=== PATIENT | male | born 1955 | race Caucasian/White ===

== ENCOUNTER 2019-03-29 08:55 | Outpatient (CLI) | payer MEDICARE, SELFPAY ==
--- NOTE | 2019-04-01 23:49 | P.PCNPFT_ITS ---
PFT Interpretation PFT Interpretation: DOS: 03/29/2019 REQUESTING: Dr. Chapin Ocampo REASON FOR TESTING: Dyspnea PULMONARY FUNCTION TESTS Spirometry: Moderate decrease in FEV1 56%, 1.73 L. Moderate decrease in FVC 60%. Decreased FEV1% consistent with airflow obstruction. Severe decrease in FEF25- 75%. No change with bronchodilator. Lung volumes: Mild increase in total lung capacity 121% consistent with hyperinflation. Severe increase in residual volume consistent with air trapping. Increase airway resistance 273%. Diffusion: DLCO is 93%, normal. Flow volume loop: Scooping of the expiratory limb. IMPRESSION: Moderate obstructive ventilatory impairment, mild hyperinflation, severe air trapping. Lack of response to bronchodilator should not preclude use if clinically indicated. Nicolette Swann MD
== END 2019-03-29 08:56 | disposition home or self-care (01) ==
PROVIDERS: PCP Family Medicine; Visit Provider Family Medicine
DX: R06.09 Other forms of dyspnea (principal); R94.2 Abnormal results of pulmonary function studies
CPT/HCPCS: 94060; 94726; 94729

== ENCOUNTER 2020-06-02 15:06 | Outpatient (CLI) | payer MEDICARE, OTHER, SELFPAY ==
--- NOTE | 2020-06-08 13:11 | WPDPFTINT ---
PFT Interpretation This PFT met all criteria for ATS standards and reproducibility FEV/FVC post bronchodilator 62% FEV1 51% FVC 63% TLC 77% RV 114% RV/TLC 50% DLCO 67% when adjusted for alveolar volume but not adjusted for hemoglobin Flow volume loops showed significant expiratory coving. Impression: Severe to moderate Airflow obstruction with good response to bronchodilators. There is also a restrictive ventilatory defect As well as mildly reduced diffusion capacity. When compared to a pulmonary function test in March of 2019 there has been a significant decline in total lung capacity as well as diffusion capacity. This pattern suggests underlying obstructive airway disease such as COPD and/or asthma but may also suggest developing interstitial lung disease. Clinical And radiographic correlation is advised. PFT Procedure Performed PFT Procedure Performed Spirometry with Pre/Post Bronchodilator Plethysmography (Lung Vol) Diffusing Cap (DLCO) Flow Vol Loop
== END 2020-06-02 15:07 | disposition home or self-care (01) ==
LOC: ANHPFT 15:08
PROVIDERS: PCP Family Medicine
DX: J44.9 Chronic obstructive pulmonary disease, unspecified (principal)
CPT/HCPCS: 94060; 94726; 94729

== ENCOUNTER → 2021-03-28 11:32 | Outpatient (CLI) | payer MEDICARE, SELFPAY ==
--- NOTE | ~2021-03-28 | MR_ITS ---
EXAMINATION: MR brain/brain stem wo con DATE: 03/28/2021 12:18 INDICATION: Right hand tremor. TECHNIQUE: Magnetic resonance imaging (MRI) of the brain and brainstem was performed without intraven ous contrast. Sequences included sagittal and axial T1-weighted FSE, axial diffusion-weighted FS EPI, axial T2*-weighted GRE, axial T2-weighted FLAIR Propeller, and axial T2-weighted Propeller. Apparent diffusion coefficient (ADC) maps were created. COMPARISON: None. FINDINGS: There are scattered areas of nonspecific increased T2-weighted signal intensity in the cere bral white matter, which is within normal limits for the patient's age. There is no intracranial hemo rrhage, acute infarction, or abnormal intracranial mass lesion. The ventricles are normal in size. Th e mastoid air cells are normal. There is mucosal thickening in the paranasal sinuses. There are likel y changes of right ocular lens replacement surgery. IMPRESSION: 1. Normal aging brain. Reviewed, dictated and finalized at location E. ISSARY WORKER IMPRESSION: 1. Normal aging brain.
== END ==
PROVIDERS: PCP Family Medicine; Visit Provider Family Medicine
DX: G25.2 Other specified forms of tremor (principal); Z98.890 Other specified postprocedural states
CPT/HCPCS: 70551

== ENCOUNTER 2021-03-31 08:00 | Outpatient (CLI) | payer MEDICARE, OTHER, SELFPAY ==
--- NOTE | ~2021-03-31 | CT_ITS ---
EXAMINATION:CT diagnostic chest wo con DATE: 03/31/2021 08:29 INDICATION: Solitary pulmonary nodule. TECHNIQUE: Computed tomography (CT) of the chest was performed without intravenous contrast. Automate d exposure control and iterative reconstruction technique were employed. The dose-length product (DLP ) was 118.09 mGy-cm. COMPARISON: Chest CT 12/06/2018, 12/04/2019, 11/29/2017 FINDINGS: The lungs demonstrate mild atelectasis. There is a 9 mm nodule in right upper lobe, stable from 11/29/2017. There is mild emphysema. There are 8 mm and 5 mm nodules at minor fissure, stable fr om 11/29/2017. There is 6 mm and 4 mm nodules at right major fissure, stable from 11/29/2017. No pleu ral effusion. The heart size is normal. There are coronary artery calcifications. No pericardial effu carissa. There is a 6 mm stone in left kidney. There is a 3 mm stone in right kidney. There is mild thor acic spondylosis. There is a chronic compression fracture of L1. IMPRESSION: 1. Lung-RADS category 2: Benign appearance or behavior. Continue annual screening with noncontrast lo w-dose chest CT in 12 months. Reviewed, dictated and finalized at location A. PRESSER IMPRESSION: 1. Lung-RADS category 2: Benign appearance or behavior. Continue annual screeni ng with noncontrast low-dose chest CT in 12 months.
--- NOTE | ~2021-03-31 | US_ITS ---
EXAMINATION: US aorta [facility] DATE: 03/31/2021 08:26 INDICATION: Abdominal aortic aneurysm screening, diabetes, prior smoker TECHNIQUE: Grayscale, color Doppler, and pulsed Doppler images of the aorta and common iliac arteries were obtained. COMPARISON: None. FINDINGS: Maximum vascular dimensions are as follows: Proximal aorta: 2.8 cm Mid aorta: 2.1 cm Distal aorta: 2.0 cm Right common iliac artery: 1.0 cm Left common iliac artery: 1.1 cm There is no evidence of abdominal aortic aneurysm. IMPRESSION: 1. No sonographic evidence of abdominal aortic aneurysm. Reviewed, dictated and finalized at location A. MENTAL METALWORK DESIGNER
== END 2021-03-31 08:01 | disposition home or self-care (01) ==
LOC: ANHIMG 08:03
PROVIDERS: PCP Family Medicine; Visit Provider Family Medicine
DX: Z13.6 Encounter for screening for cardiovascular disorders (principal); R91.1 Solitary pulmonary nodule
CPT/HCPCS: 71250; 76706

== ENCOUNTER 2022-03-22 12:22 | Outpatient (CLI) | payer MEDICARE, OTHER, SELFPAY ==
--- NOTE | 2022-03-22 17:23 | WPDPFTINT ---
PFT Procedure Performed PFT Procedure Performed Spirometry with Pre/Post Bronchodilator Plethysmography (Lung Vol) Diffusing Cap (DLCO) Flow Vol Loop PFT Interpretation This is a pulmonary function test with pre and post-bronchodilator spirometry, plethysmography and diffusing capacity. The test was performed and results interpreted in accordance with the 2019 and 2005 ATS/ERS Task Force guidelines respectively using the Global Lung Function Initiative-2012 reference equations. Patient demonstrated good effort and cooperation. Reproducibility criteria were met. The quality of the pre bronchodilator spirometry maneuver was Grade A and post bronchodilator spirometry maneuver was Grade A. Findings: Spirometry: The contour the inspiratory and expiratory flow tracing are normal. The pre bronchodilator FVC is 2.98 L, 69% predicted. The pre bronchodilator FEV1 is 2.07 L, 63% predicted. The pre bronchodilator FEV1: FVC ratio 70%. The post bronchodilator FVC is 3.19 L, representing a 7% increase. The post bronchodilator FEV1 is 2.19 L, representing a 6% increase. The post bronchodilator FEV1: FVC ratio 69%. Plethysmography: The total lung capacity is 8.24 L, 117% predicted. The functional residual capacity is 6.00 L, 161% predicted. The residual volume is 5.12 L, 212% predicted. Diffusing capacity: The diffusing capacity unadjusted for hemoglobin and carboxyhemoglobin is 17.9, 67% predicted. The diffusing capacity adjusted for alveolar volume is 3.65, 91% predicted. In comparison to previous pulmonary function testing on 06/02/2020 the post bronchodilator FVC he has increased from 2.78 L to 3.19 L. The post bronchodilator FEV1 has increased from 1.72 L to 2.19 L. The total lung capacity has increased from 5.43 L to 8.24 L. The functional residual capacity has increased from 3.26 L to 6.00 L. The residual volume has increased from 2.71 L to 5.12 L. The diffusing capacity unadjusted for hemoglobin and carboxyhemoglobin is unchanged from 18.0 to 17.9. The diffusing capacity adjusted for alveolar volume is unchanged from 3.97 L to 3.65 L. Impression: The spirometry is normal without evidence of an obstructive abnormality. There is no significant improvement after inhaling a single dose of albuterol. The total lung capacity is normal with an increased functional residual capacity, residual volume and residual volume:total lung capacity ratio consistent with hyperinflation. The diffusing capacity unadjusted for hemoglobin and carboxyhemoglobin is mildly decreased and normalizes when adjusted for alveolar volume. When compared to previous pulmonary function testing on 06/02/2020 there has been a greater than anticipated time dependent increase in the FVC, FEV1, total lung capacity, functional residual capacity, residual volume and no change in the DLCO. Clinical correlation is recommended.
== END 2022-03-22 12:23 | disposition home or self-care (01) ==
PROVIDERS: PCP Family Medicine; Visit Provider Family Medicine
DX: J44.9 Chronic obstructive pulmonary disease, unspecified (principal)
CPT/HCPCS: 94060; 94726; 94729

== ENCOUNTER 2022-07-06 00:20 | Day surgery (SDC) | payer MEDICARE, OTHER, SELFPAY ==
[2022-06-22 11:09] VITALS: BMI 24.6
[2022-07-06 10:15] VITALS: BP 133/74; PULSE 71; RESP 18; TEMP 36.4; O2SAT 98; BMI 24.0
[2022-07-06 10:27] LABS: Glucose Point of Care 148 mg/dl (65-105)
--- NOTE | 2022-07-06 10:30 | PM.HPGS ---
History of Present Illness History of Present Illness Consent: Risks, benefits, and alternatives have been discussed and questions answered. Patient agrees to proceed with procedure. Chief complaint: neoplasm screening Narrative: Brice Gallegos is a 66 year old male Presents for screening colonoscopy. Patient does have a prior history of colon polyps 5 years ago. Patient reports his current weight appetite bowel movements are normal. Patient denies abdominal pain. He has had no bleeding. Family history noncontributory. Review of Systems Review of Systems: Review of systems noncontributory. [facility] Past Medical History Medical History COPD (chronic obstructive pulmonary disease) History of diabetes mellitus History of throat cancer Surgical History Surgical History History of ankle surgery right History of inguinal hernia repair History of shoulder surgery right History of tonsillectomy Family History Family History Father Family history of malignant neoplasm Mother Family history of Alzheimer's disease Family history of diabetes mellitus in first degree relative Sibling Patient's sister is in good health Patient's brother is in good health Social History Social History Smoking packs per day: 1.5 Smoking cigarettes per day: 30.0 Years smoked: 35 Smoking pack-years: 52.50 Smoking status: Former smoker Tobacco type: cigarettes Second hand tobacco smoke exposure: No Smoking end date: 07/15/18 Additional smoking assessment comments: quit 10 years ago Alcohol intake: never Substance use: never Substance use type: does not use Lack of Transportation: No Lack of Food: Never True Current Housing: I Have Housing Concerned About Future Housing: No Difficulty Paying Gas/Electric Bills: No Difficulty Paying for Meds: No Currently Unemployed: No Education: High School Diploma/GED Difficulty w/ Childcare or Family Care: No Living arrangements: with family Occupation/Education: retired Gender identity (if verbalized by the patient): Male Sexual Orientation (if Verbalized by the Patient): Straight or Heterosexual Spiritual care concerns: No Meds Home Medications and Allergies Home Medications Medication Instructions Recorded Confirmed Type aspirin 81 mg chewable tablet 81 mg PO DAILY@0800 #30 tabs 02/22/19 06/22/22 Rx (Children's Aspirin) pen needle, diabetic, safety 30 #100 ea 10/16/19 06/22/22 Rx gauge x 5/16 pen needle, diabetic 31 gauge x #100 ea 12/18/19 06/22/22 Rx 3/16 (BD Ultra-Fine Mini Pen Needle) albuterol sulfate 90 mcg/actuation 1 - 2 inh inhalation Q4H PRN 09/30/20 06/22/22 Rx aerosol inhaler (ProAir HFA) shortness of breath or wheezing #6.7 grams methocarbamol 500 mg tablet 500 mg PO BID 03/23/21 06/22/22 History flash glucose scanning reader #1 ea 07/27/21 06/22/22 Rx (FreeStyle Jolie 14 Day [place]) flash glucose sensor (FreeStyle #2 ea 07/27/21 06/22/22 Rx Jolie 14 Day Sensor kit) insulin degludec 100 unit/mL (3 30 unit (0.3 mL) subcut QPM #27 mL 09/15/21 06/22/22 Rx mL) subcutaneous pen (Tresiba FlexTouch U-100 insulin) metformin 1,000 mg tablet 1,000 mg PO BID #180 tabs 09/30/21 06/22/22 Rx insulin aspart U-100 100 unit/mL See Rx Instructions subcut TID #30 11/25/21 06/22/22 Rx (3 mL) subcutaneous pen (Novolog mL FlexPen U-100 Insulin aspart) sildenafil 50 mg tablet 50 mg PO DAILY PRN sexual activity 12/11/21 06/22/22 Rx #14 tabs primidone 250 mg tablet 500 mg PO BID #120 tabs 03/25/22 06/22/22 Rx rosuvastatin 5 mg tablet (Crestor) 5 mg PO DAILY #90 tabs 05/06/22 06/22/22 Rx Symbicort 160 mcg-4.5 See Rx Instructions .Route 06/24/22 07/06/22 Rx mcg/actuation HFA aerosol i
[2022-07-06] MEDS: LACTATED RINGERS 1,000 ML 150 ML IV CONT (10:37)
--- NOTE | 2022-07-06 11:04 | WPDANESEPPF ---
Anes - Initial Pre Proc Eval Procedure: Operation Date: 07/06/22 11:30 Proposed Procedures p Screening Colonoscopy - Lyle Walter MD Date/Time: 07/06/22 11:04 Surgeon: Lyle Walter MD Pre Op Diagnosis: neoplasm screening Patient Data Age: 66 Gender: M Height: 1.78 m Weight: 75.9 kg Last Vital Signs Temp 97.6 F 07/06/22 10:15 Pulse 71 07/06/22 10:15 Resp 18 07/06/22 10:15 BP 133/74 07/06/22 10:15 Pulse Ox 98 07/06/22 10:15 O2 Del Method Room Air 07/06/22 10:15 Allergies Allergy/AdvReac Type Severity Reaction Status Date / Time shellfish derived Allergy Intermediate Swelling Verified 06/22/22 11:09 shrimp Allergy Unknown Anaphylaxis Verified 06/22/22 11:09 Home Medications Medication Instructions Recorded Confirmed Type aspirin 81 mg chewable tablet 81 mg PO DAILY@0800 #30 tabs 02/22/19 06/22/22 Rx (Children's Aspirin) pen needle, diabetic, safety 30 #100 ea 10/16/19 06/22/22 Rx gauge x 5/16 pen needle, diabetic 31 gauge x #100 ea 12/18/19 06/22/22 Rx 3/16 (BD Ultra-Fine Mini Pen Needle) albuterol sulfate 90 mcg/actuation 1 - 2 inh inhalation Q4H PRN 09/30/20 06/22/22 Rx aerosol inhaler (ProAir HFA) shortness of breath or wheezing #6.7 grams methocarbamol 500 mg tablet 500 mg PO BID 03/23/21 06/22/22 History flash glucose scanning reader #1 ea 07/27/21 06/22/22 Rx (FreeStyle Jolie 14 Day [place]) flash glucose sensor (FreeStyle #2 ea 07/27/21 06/22/22 Rx Jolie 14 Day Sensor kit) insulin degludec 100 unit/mL (3 30 unit (0.3 mL) subcut QPM #27 mL 09/15/21 06/22/22 Rx mL) subcutaneous pen (Tresiba FlexTouch U-100 insulin) metformin 1,000 mg tablet 1,000 mg PO BID #180 tabs 08/17/22 05/09/23 Rx insulin aspart U-100 100 unit/mL See Rx Instructions subcut TID #30 11/25/21 06/22/22 Rx (3 mL) subcutaneous pen (Novolog mL FlexPen U-100 Insulin aspart) sildenafil 50 mg tablet 50 mg PO DAILY PRN sexual activity 12/11/21 06/22/22 Rx #14 tabs primidone 250 mg tablet 500 mg PO BID #120 tabs 03/25/22 06/22/22 Rx rosuvastatin 5 mg tablet (Crestor) 5 mg PO DAILY #90 tabs 05/06/22 06/22/22 Rx Symbicort 160 mcg-4.5 See Rx Instructions .Route 06/24/22 07/06/22 Rx mcg/actuation HFA aerosol inhaler .COMPLEX #11 grams (budesonide-formoterol) Laboratory Tests 07/06/22 10:25 POC Capillary Glucose 148 H mg/dl (65-105) Patient hx anesthesia problems: none Family hx anesthesia problems: none Results Review: All pre-operative results and documents have been reviewed as part of the pre-operative evaluation. [facility] Past Medical History Medical History COPD (chronic obstructive pulmonary disease) History of diabetes mellitus History of throat cancer Surgical History Surgical History History of ankle surgery right History of inguinal hernia repair History of shoulder surgery right History of tonsillectomy Family History Family History Father Family history of malignant neoplasm Mother Family history of Alzheimer's disease Family history of diabetes mellitus in first degree relative Sibling Patient's sister is in good health Patient's brother is in good health Social History Social History Smoking packs per day: 1.5 Smoking cigarettes per day: 30.0 Years smoked: 35 Smoking pack-years: 52.50 Smoking status: Former smoker Tobacco type: cigarettes Second hand tobacco smoke exposure: No Smoking end date: 07/15/18 Additional smoking assessment comments: quit 10 years ago Alcohol intake: never Substance use: never Substance use type: does not use Lack of Transportation: No Lack of Food: Never True Current Housing: I Have Housing Concerned About Future Housing: No Diff
[2022-07-06] MEDS: SIMETHICONE ORAL SUSPENSION 20 MG/0.3 ML 30 ML BOTTLE 0.6 ML IRRIGATION (11:30)
[2022-07-06 11:45] VITALS: BP 102/60; PULSE 72; RESP 18; O2SAT 99
[2022-07-06 11:55] VITALS: BP 113/68; PULSE 70; RESP 20; O2SAT 98
[2022-07-06 12:05] VITALS: BP 110/69; PULSE 68; RESP 20; O2SAT 99
== END 2022-07-06 12:18 | disposition home or self-care (01) ==
PROVIDERS: PCP Family Medicine; Visit Provider Internal Medicine Gastroenterology
PROC: 0DJD8ZZ Inspection of Lower Intestinal Tract, Via Natural or Artificial Opening Endoscopic (ICD-10-PCS; CPT 45378; principal; 2022-07-06 11:30)
DX: Z12.11 Encounter for screening for malignant neoplasm of colon (principal); D12.2 Benign neoplasm of ascending colon; K62.1 Rectal polyp; K64.8 Other hemorrhoids; J44.9 Chronic obstructive pulmonary disease, unspecified; E11.9 Type 2 diabetes mellitus without complications; Z87.891 Personal history of nicotine dependence; Z79.82 Long term (current) use of aspirin; Z79.4 Long term (current) use of insulin
CPT/HCPCS: 45385; 82948; 88305; J2704; J7120

== ENCOUNTER → 2022-07-07 09:49 | Outpatient (CLI) | payer MEDICARE, OTHER, SELFPAY ==
--- NOTE | ~2022-07-07 | XR_ITS ---
EXAMINATION: XR chest 2V 07/07/2022 10:18 INDICATION: Personal history of malignant neoplasm PROCEDURE: 2 view chest COMPARISON: 02/21/2019 FINDINGS: The lungs are clear. The cardiomediastinal silhouette is within normal limits. There are no pleural effusions. There is no pneumothorax suspected. IMPRESSION: 1: NO ACUTE CARDIOPULMONARY DISEASE. Reviewed, dictated and finalized at location B.
== END ==
PROVIDERS: PCP Family Medicine; Visit Provider Otolaryngology
DX: Z85.831 Personal history of malignant neoplasm of soft tissue (principal)
CPT/HCPCS: 71046

== ENCOUNTER → 2022-07-09 11:56 | Outpatient (CLI) | payer MEDICARE, OTHER, SELFPAY ==
--- NOTE | ~2022-07-09 | CT_ITS ---
EXAMINATION: CT lung screening DATE: 07/09/2022 12:30 INDICATION: Nicotine dependence TECHNIQUE: Computed tomography (CT) of the chest was performed without intravenous contrast. The dose -length product was 99.71 mGy-cm. Automated exposure control and iterative reconstruction technique w ere employed. COMPARISON: Comparison to multiple prior studies sequentially, with oldest reviewed study dated 11/14. FINDINGS: There is elevation of the left diaphragm. There is atherosclerosis of the aorta and coronar y arteries. Heart size normal. No thoracic lymphadenopathy. Mild thickening of the distal esophagus, suspicious for esophagitis. There is nonobstructing left nephrolithiasis. There are small right sided perifissural nodules measuring 4 mm. There is an 8 mm right fissural nodule, image 67. The pulmonary nodules are unchanged from prior examination. No new pulmonary nodules or masses. No focal airspace consolidation. No pneumothorax. Stable mild superior endplate compression deformity of L1. IMPRESSION: 1. Lung-RADS category 2: Benign appearance or behavior. Continue annual screening with noncontrast lo w-dose chest CT in 12 months. Reviewed, dictated and finalized at location B. IMPRESSION: 1. Lung-RADS category 2: Benign appearance or behavior. Continue annual screeni ng with noncontrast low-dose chest CT in 12 months.
== END ==
PROVIDERS: PCP Physician Assistant; Visit Provider Physician Assistant
DX: Z12.2 Encounter for screening for malignant neoplasm of respiratory organs (principal); Z87.891 Personal history of nicotine dependence
CPT/HCPCS: 71271

== ENCOUNTER 2022-12-25 12:50 | Emergency (ER) | payer MEDICARE, OTHER, SELFPAY ==
--- NOTE | ~2022-12-25 | XR_ITS ---
EXAMINATION: XR ribs LT 2V DATE: 12/25/2022 13:11 INDICATION: Left chest injury and pain. TECHNIQUE: 2 views of the left ribs on 3 radiographs were obtained. COMPARISON: Chest 2 views 07/07/2022, chest CT 07/09/2022 FINDINGS: There is chronic mild elevation of left hemidiaphragm. No left-sided pneumonia, pleural eff usion, or pneumothorax. The heart size is normal. There is no rib fracture. IMPRESSION: 1. No rib fracture. Reviewed, dictated and finalized at location A. GRADER OPERATOR IMPRESSION: 1. No rib fracture.
--- NOTE | 2022-12-25 12:54 | ED.CHESTPAIN ---
HPI - Chest Pain General Chief Complaint: Chest Pain Stated Complaint: rib pain Time Seen by Provider: 12/25/22 12:53 Source: patient Mode of arrival: ambulatory Limitations: no limitations History of Present Illness HPI narrative: Luz is a 67-year-old male patient presenting to the clinic today with complaints of left rib pain x2 days. He reports is lying on the ground laying pipe in a ditch and rolled on his left side and felt a pop to his left lower ribs. [place] a pop when he rolled. Complaining of pain/discomfort to the left lower ribs ever since is gradually getting worse. Related Data Home Medications Medication Instructions Recorded Confirmed budesonide-formoterol HFA 160 See Rx Instructions .Route 10/29/22 11/29/22 mcg-4.5 mcg/actuation aerosol .COMPLEX PRN inhaler (Symbicort) Allergies Allergy/AdvReac Type Severity Reaction Status Date / Time shellfish derived Allergy Intermediate Swelling Verified 11/29/22 11:20 shrimp Allergy Unknown Anaphylaxis Verified 11/29/22 11:20 Review of Systems Review of Systems: Pertinent positives per HPI. Patient denies any fever, chills, rash, headache, visual changes, dizziness, cough, shortness of breath, chest pain, palpitations, nausea, vomiting, diarrhea, constipation, abdominal pain, or any urinary issues. [facility] Past Medical History Medical History COPD (chronic obstructive pulmonary disease) History of diabetes mellitus History of throat cancer Surgical History Surgical History History of ankle surgery right History of inguinal hernia repair History of shoulder surgery right History of tonsillectomy Family History Family History Father Family history of malignant neoplasm Mother Family history of Alzheimer's disease Family history of diabetes mellitus in first degree relative Sibling Patient's sister is in good health Patient's brother is in good health Social History Social History Smoking packs per day: 1.5 Smoking cigarettes per day: 30.0 Years smoked: 35 Smoking pack-years: 52.50 Smoking status: Former smoker Tobacco type: cigarettes Second hand tobacco smoke exposure: No Smoking end date: 07/15/18 Additional smoking assessment comments: quit 10 years ago Alcohol intake: former Substance use: current Substance use type: marijuana Lack of Transportation: No Lack of Food: Never True Current Housing: I Have Housing Concerned About Future Housing: No Difficulty Paying Gas/Electric Bills: No Difficulty Paying for Meds: No Currently Unemployed: No Education: High School Diploma/GED Difficulty w/ Childcare or Family Care: No Living arrangements: with family Occupation/Education: retired Gender identity (if verbalized by the patient): Male Sexual Orientation (if Verbalized by the Patient): Straight or Heterosexual Spiritual care concerns: No Comments At the time of my signature, I reviewed and agree with the nursing past medical, surgical, social, and family history. There is no relevant family history pertinent to the patient complaint. Exam Narrative: General: Well-developed, well nourished, in no apparent distress Head: Normocephalic, atraumatic Eyes: Pupils equally round and reactive to light bilaterally, EOM intact, sclera and conjunctive clear, no discharge, lids normal Ears: TMs intact and clear, ear canals clear, no drainage, grossly hearing normal. Nose: Nares patent, no discharge, no inflammation, no sinus tenderness. Mouth: Oral pharynx without lesions or masses, good dentition, MMM. Neck: Supple, trachea midline, no enlargement of anterior or posterior cervical nodes, no thyroid masses or goiter palpable. Chest wall: Tender to palp
[2022-12-25 13:02] VITALS: BP 139/63; PULSE 73; RESP 18; TEMP 36.4; O2SAT 98
== END 2022-12-25 13:23 | disposition home or self-care (01) ==
PROVIDERS: Emergency Provider Nurse Practitioner Family; PCP Family Medicine
DX: S20.211A Contusion of right front wall of thorax, initial encounter (principal); J44.9 Chronic obstructive pulmonary disease, unspecified; E11.9 Type 2 diabetes mellitus without complications; Z85.89 Personal history of malignant neoplasm of other organs and systems; Z87.891 Personal history of nicotine dependence; X50.0XXA Overexertion from strenuous movement or load, initial encounter
CPT/HCPCS: 71100; 99213; G0463

== ENCOUNTER 2023-07-12 08:22 | Outpatient (CLI) | payer MEDICARE, OTHER, SELFPAY ==
--- NOTE | ~2023-07-12 | CT_ITS ---
CT Scan of the Chest without Contrast: Clinical Indication: Lung cancer screening, nicotine dependence Technique: Contiguous sections were acquired throughout the chest without intravenous contrast. Dose reduction technique was used on this scan by utilizing automated exposure control and iterative recon struction technique. The dose-length product (DLP) was 69.91 mGy-cm. COMPARISON: 07/09/2022 Findings: There is no evidence of any significant mediastinal, hilar or axillary lymphadenopathy. The mediastin al soft tissues appear normal. There is no evidence of pleural or pericardial effusion. Stable 1.1 cm right upper lobe pulmonary nodule present (axial image 58). Stable nodules along the ri ght minor fissure. Images through the upper abdomen reveal bilateral nonobstructing renal stones, largest measuring 7 mm on the left side. Stable mild compression deformity of L1. Impression: Lung RADS 2: Benign appearance. 12 month follow-up screening CT advised. Reviewed, dictated and finalized at [facility]. Impression: Lung RADS 2: Benign appearance. 12 month follow-up screening CT advised.
== END 2023-07-12 08:23 ==
LOC: MICIMG 08:24
PROVIDERS: PCP Family Medicine; Visit Provider Physician Assistant
DX: Z12.2 Encounter for screening for malignant neoplasm of respiratory organs (principal); Z87.891 Personal history of nicotine dependence
CPT/HCPCS: 71271

== ENCOUNTER 2024-04-09 14:25 | Emergency (ER) | payer MEDICARE, OTHER, SELFPAY ==
--- NOTE | 2024-04-09 14:58 | ED.SKABFB ---
HPI - Skin/Abscess/Foreign Bdy General Chief complaint: Skin/Abscess/Foreign Body Stated complaint: Burn in the bottom of both feet Time Seen by Provider: 04/09/24 15:14 Source: patient, RN notes reviewed and old records reviewed Mode of arrival: ambulatory Limitations: no limitations History of Present Illness HPI narrative: 68-year-old male presents to the [facility] with adam to the bottom of both feet that occurred approximately 1 week ago. Patient states that he had applied hot hands toe more MRSA to his feet when the temperatures were very cold. Onset (ago): week(s) (1) Related Data Home Medications ?Medication ?Instructions ?Recorded ?Confirmed ?Last Taken ?Type insulin degludec 100 unit/mL (3 8 unit subcut QPM 09/14/23 01/25/24 Unknown History mL) subcutaneous pen (Tresiba FlexTouch U-100 insulin) omeprazole 40 mg capsule,delayed 40 mg PO DAILY 09/14/23 01/25/24 Unknown History release Allergies Allergy/AdvReac Type Severity Reaction Status Date / Time shellfish derived Allergy Intermediate Swelling Verified 04/09/24 15:15 shrimp Allergy Unknown Anaphylaxis Verified 09/14/23 10:32 Review of Systems Review of Systems: All systems reviewed & are unremarkable except as noted in HPI and below Constitutional: Constitutional: Reports no additional constitutional complaints ENT: Reports system reviewed and no additional complaints, except as documented Cardiovascular: Cardiovascular: Reports no additional cardiovascular complaints, Denies chest pain and Denies dyspnea Respiratory: Respiratory: Reports no additional respiratory complaints, Denies chest congestion, Denies cough and Denies dyspnea Musculoskeletal: Musculoskeletal: Reports no additional musculoskeletal complaints Integumentary/Breasts: Skin/Breast: Reports as per HPI PMFSH Past Medical History Medical History COPD (chronic obstructive pulmonary disease) History of throat cancer History of diabetes mellitus Surgical History Surgical History History of shoulder surgery right History of ankle surgery right History of inguinal hernia repair History of tonsillectomy Family History Family History Father Family history of malignant neoplasm Mother Family history of Alzheimer's disease Family history of diabetes mellitus in first degree relative Sibling Patient's sister is in good health Patient's brother is in good health Social History Social History Smoking packs per day: 1.5 Smoking cigarettes per day: 30.0 Years smoked: 35 Smoking pack-years: 52.50 Smoking status: Former smoker Tobacco type: cigarettes Second hand tobacco smoke exposure: No Smoking end date: 07/15/18 Additional smoking assessment comments: quit 10 years ago Alcohol intake: former Substance use: current Substance use type: marijuana Do You Feel Safe in your Home?: Yes Lack of Transportation: No Lack of Food: Never True Current Housing: I Have Housing Concerned About Future Housing: No Difficulty Paying Gas/Electric Bills: No Difficulty Paying for Meds: No Currently Unemployed: No Education: High School Diploma/GED Difficulty w/ Childcare or Family Care: No Living arrangements: with family Occupation/Education: retired Gender identity (if verbalized by the patient): Male Sexual Orientation (if Verbalized by the Patient): Straight or Heterosexual Spiritual care concerns: No Comments At the time of my signature, I reviewed and agree with the nursing past medical, surgical, social, and family history. There is no relevant family history pertinent to the patient complaint. Exam Const: General: cooperative, healthy appearing, comfortable, no acute distress, well developed, alert and well nourished Nutritional Appearance: well nourished Orientation/consciousness: patient oriented x3 Limitations: no limitations HENMT: Head: normal to inspection Eyes: General: appearance normal, both eyes and all related structures Alignment and Position: alignment normal Neck: Neck: normal visual inspection, full ROM, no lymphadenopathy and no meningeal signs Chest: Chest palpation & inspection: normal inspection of the chest Resp: Effort & Inspection: normal respiratory effort and able to speak in complete sentences Cardio: Rate: regular rate Skin: General skin exam: normal color and no rashes or lesions noted Neuro: General: patient oriented x3, gait normal, moves all extremities and no meningeal signs Cognition (Neuro): normal cognition Speech: normal speech Gait exam (Neuro): Normal gait present Extrem: General: normal to inspection, full ROM, capillary refill normal and normal gait Ankle/foot/toe images:  1. 2.5 x 1 cm pink area. No increased erythema. No swelling. No drainage. Looks to be a well-healing wound possible 1st degree burn. 2. 2 x 2 circular area, healing without increased erythema, swelling. No drainage. No signs of infection. Psych: Appearance: grossly normal and well kempt Mental Status: mental status grossly normal Speech and movement: Normal speech and movement present and Clear speech present Affect: normal affect Attitude: cooperative Course Course Level of Care: Express Care Visit Vital Signs Vital signs: Vital Signs Temperature 98 F 04/09/24 14:59 Pulse Rate 72 04/09/24 14:59 Respiratory Rate 18 04/09/24 14:59 Blood Pressure 138/52 L 04/09/24 14:59 Pulse Oximetry 95 04/09/24 14:59 Oxygen Delivery Room Air 04/09/24 14:59 Temperature 98 F 04/09/24 14:59 Pulse Rate 72 04/09/24 14:59 Respiratory Rate 18 04/09/24 14:59 Blood Pressure 138/52 L 04/09/24 14:59 Pulse Oximetry 95 04/09/24 14:59 Oxygen Delivery Room Air 04/09/24 14:59 Reviewed MDM - Skin/Abscess/Foreign Bdy MDM Narrative Medical decision making narrative: Patient sitting in exam room. Nontoxic, vitals stable. Patient in no acute distress. Patient presents with bilateral foot adam from hot hand toe more MERS. States that he apply item to his feet 1 week ago. No signs of cellulitic changes. Well-healing wounds noted to the balls of bilateral feet. Discussed continued treatment. Patient is appropriate for outpatient treatment and follow-up Discharge instructions reviewed with patient, as well as provided in writing per nursing staff. The instructions also include specific and strict return/GO TO THE ER as well as f/u information. All questions have been answered, and the patient deny any further questions with discharge and discharge plan. Some parts of this dictation were generated by voice recognition software and may contain typographical and/or grammatical inaccuracies. Differential Diagnosis Differential diagnosis: Likely abscess of skin or subcutaneous tissue, cellulitis and other (Burn) Critical Care Time Critical Care Time Critical Care Time: No Discharge Plan Discharge Clinical Impression: Superficial burn, Vaccine for [id number]-[id number], combined Patient Disposition: Home, Self-Care Condition: Stable Instructions: Antibiotic Form, Superficial Burn (DC) Additional Instructions: Wash area with just warm soapy water. Do not use peroxide. You can apply bacitracin twice daily. Follow-up with podiatry Follow-up with primary care provider For new or worsening symptoms go directly to emergency room Patient Language: Yi Prescriptions: No Action omeprazole 40 mg capsule,delayed release(DR/EC) 40 mg PO DAILY rosuvastatin 10 mg tablet See Rx Instructions .ROUTE .COMPLEX Qty: 90 1RF Dose Instruction: Take 1 tablet by mouth once daily Rx Instructions: Take 1 tablet by mouth once daily Tresiba FlexTouch U-100 100 unit/mL (3 mL) insulin pen 8 unit SUB-Q QPM primidone 250 mg tablet 250 mg PO TID Qty: 300 4RF topiramate [Topamax] 50 mg tablet 50 mg PO BID Qty: 180 4RF Rx Instructions: may be taken 2 tablets at bedtime aspirin [Children's Aspirin] 81 mg Tablet,Chewable 81 mg PO DAILY@0800 Qty: 30 3RF (DME) pen needle, diabetic, safety 30 gauge x 5/16 needle See Rx Instructions .ROUTE .MEDSUPPLY Qty: 100 12RF Rx Instructions: As directed to administer insulin TID (DME) pen needle, diabetic [BD Ultra-Fine Mini Pen Needle] 31 gauge x 3/16 needle See Rx Instructions .ROUTE .MEDSUPPLY Qty: 100 4RF Rx Instructions: As directed with insulin QID metformin 1,000 mg tablet 1,000 mg PO BID Qty: 180 2RF budesonide-formoterol [Symbicort] 160-4.5 mcg/actuation HFA aerosol inhaler See Rx Instructions .ROUTE .COMPLEX Qty: 11 3RF Dose Instruction: INHALE 2 PUFFS BY MOUTH EVERY 12 HOURS Rx Instructions: INHALE 2 PUFFS BY MOUTH EVERY 12 HOURS Novolog FlexPen U-100 Insulin 100 unit/mL (3 mL) insulin pen See Rx Instructions SUBCUT TID MDD 18 Qty: 15 2RF Rx Instructions: PLEASE TAKE 3 UNITS IN THE MORNING, 3 UNITS IN THE AFTERNOON AND 4 UNITS AT NIGHT Follow-up/Referrals: Harley Nickerson MD [Primary Care Provider] - 1 Week (express care follow up ) Stand Alone Forms: Work/School Release IP Time of Disposition: 15:28
[2024-04-09 14:59] VITALS: BP 138/52; PULSE 72; RESP 18; TEMP 36.6; O2SAT 95
[2024-04-09] MEDS: TETANUS,DIPHTHERIA,AC PERTUSSIS ADULT (0.5 ML) BOOSTRIX IM (15:26)
--- OUTSIDE RECORDS SUMMARY | 2024-04-09 16:47 | XMS_ITS | Clinical Summary ---
Author Organization [facility] Address [address] [place] [address] Care Team Providers Care Fixing Carpenter Name Role Phone Chapin Ocampo MD Primary Care Provider [phone] Source Comments [facility],non-owned Affiliates and Associated Physician Practices is amultiple site organization consisting of ambulatory clinics and hospital sitesin [place], [place], [place] and [place]. This disclosure is being madepursuant to the Care Everywhere program and may not contain all information available regarding this patient. Last updated 17.[facility] Social History Tobacco Use Types Packs/Day Years Used Date Smoking Tobacco: Never Assessed Sex and Gender Information Value Date Recorded Sex Assigned at Not on file Gender Identity Not on file Sexual Orientation Not on file Plan of Treatment Health Maintenance Due Date Last Done Comments COLOGUARD (AGES 45-75) - COL ON CA SCREENING 1953 COLON MONITORING 1953 COLONOSCOPY - COLON CA SCREENING 1953 CT COLONOGRAPHY - COLON CA SCREENING 1953 Colorectal Cancer Screening 1953 FIT - COLON CA SCREENING 1953 FLEX SIG - COLON CA SCREENING 1953 LIPID TESTING 1953 MEDICARE AWV 12 MONTHS 1953 HEPATITIS C SCREENING 10/12/1971 DTAP/TDAP/TD VACCINES (1 - Tdap) 1972 PNEUMOCOCCAL VACCINE 50+ (1 of 1 - PCV) 10/17/2003 ZOSTER VACCINE (1 of 2) 10/17/2003 COVID-19 VACCINE ( - 2023-2 5 season) 2023 INFLUENZA VACCINE (#1) 2023 DEPRESSION SCREENING 02/15/2024 Respiratory Syncytial Virus (RSV) Vaccine Pt: or over 60 yrs (1 - 1-dose 75+ series) 2028 HEPATITIS B VACCINE Aged Out No longe r eligible based on patient's age to complete this topic HIB VACCINE Aged Out No longer eligi ble based on patient's age to complete this topic HPV VACCINE Aged Out No longer eligi ble based on patient's age to complete this topic MENINGOCOCCAL (Group B) VACCINE Aged Out No longer eligible based on patient's age to complete this topic MENINGOCOCCAL VACCINE Aged Out No yasmani mercedez eligible based on patient's age to complete this topic Care Teams Fixing Carpenter Relationship Specialty Start Date End Date Chapin Ocampo MD [address] [place] [address] PCP - General 08/04/17
--- OUTSIDE RECORDS SUMMARY | 2024-04-09 16:47 | XMS_ITS | Clinical Summary ---
Author Organization [facility] Address [address] [place] [address] Care Team Providers Care Clinical Laboratory Scientist Name Role Phone Brett Gunn MD Primary Care Provider [phone] Allergies No known active allergies Medications metformin (GLUCOPHAGE) 1,000 mg Oral tablet Take 1,000 mg by mouth 2 times daily with meals. Active aspirin (SARAI) 81 mg Oral Tab Take 81 mg by mouth 2 times daily. Active varenicline (CHANTIX) 0.5(11)-1(3X14) mg Oral tablets in a dose pack Take by mouth. Take as directed on package. 1 Package 1 0 Active INSULIN ASPART (NOVOLOG SUBCUT) Inject 6 Units by subcutaneous injection 3 times daily as needed 6 units, 6 units and 8 units at dinner. Active sennosides-docu sate sodium (SENNA-S) 8.6-50 mg tablet Take 2 Tablet by mouth 2 times daily. 5 Active bacitracin-poly myxin B (POLYSPORIN) 500-10,000 unit/gram Ointment Apply to affected area 2 times daily. 5 Active HYDROcodone-lorelei taminophen (NORCO) 10-325 mg Tablet Take 1 Tablet by mouth every 4 hours as needed for Pain, Severe. Max Daily Amount: 6 Tablet 60 Tablet 0 5 Active Active Problems Patient Care Coordination No te Formatting of this note migh t be different from the original. 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 Chris ([place] office) Problem Noted Date Diagnosed Date Type II or unspecified type diabetes mellitus without mention of complication, uncontrolled 10/08/2014 Lymphadenopathy of left cervical region 10/08/19 15 Smoking 06/24/2009 Diabetes 06/24/2009 Family History Medical History Relation Name Comments Healthy Father Diabetes Maternal Grandmother Healthy Mother Relation Name Status Comments Father Maternal Grandmother Mother Social History Tobacco Use Types Packs/Day Years Used Date Smoking Tobacco: Light Smoker Cigarettes 2 30 Smokeless Tobacco: Never Comments:in process of quitt ing, down to 2 cigs/day Alcohol Use Standard Drinks/Week Comments No 0 (1 standard drink = 0.6 oz pur e alcohol) Sex and Gender Information Value Date Recorded Sex Assigned at Not on file Legal Sex 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2 10/08/2014 12:37 AM CDT Plan of Treatment Health Maintenance Due Date Last Done Comments DTAP/TDAP/TD VACCINES (1 - Tdap) 1972 COLORECTAL SCREENING 1998 Colorectal Cancer Screening 1998 FIT-DNA Q 3 years 1998 FIT/FOBT Q 1 year 1998 Flex Sig/CT Colonography Q 5 years 1998 PNEUMOCOCCAL VACCINE 65+ YEARS (1 of 1 - PCV) 10/17/19 04 ZOSTER VACCINE (1 of 2) 10/17/2003 INFLUENZA VACCINE (#1) 2023 RSV VACCINE (60+ or ) (1 - 1-dose 75+ series) 2028 Advance Directives For more information, please contact: [phone] * Full Code (Latest Code Status on File) Date Activated Date Inactivated Comments 10/07/2014 3:25 PM 10/10/2014 3:05 PM * Full Code Date Activated Date Inactivated Comments 10/07/2014 9:26 AM 10/07/2014 3:25 PM * Full Code Date Activated Date Inactivated Comments 06/13/2014 7:18 AM 06/14/2014 3:01 AM Care Teams Clinical Laboratory Scientist Relationship Specialty Start Date End Date Brett Gunn MD PCP - General Internal Medicine 04/10/13
--- OUTSIDE RECORDS SUMMARY | 2024-04-09 16:47 | XMS_ITS | Encounter Summary ---
Author Organization [facility] Address [address] [place] [address] Care Team Providers Care Varnish Inspector Name Role Phone Chapin Ocampo MD Primary Care Provider [phone] Encounter Details Date Type Department Care Team (Late st Contact Info) Description 01/18/2018 Lab Requisition [facility] Care DermPath Lab [address] [place] [address] Juanpablo Austin MD [address] [place] [address] Social History Tobacco Use Types Packs/Day Years Used Date Smoking Tobacco: Never Assessed Sex and Gender Information Value Date Recorded Sex Assigned at Not on file Gender Identity Not on file Sexual Orientation Not on file documented as of this encounter Plan of Treatment Not on file documented as of this encounter Procedures Procedure Name Priority Date/Time Associated Diagnosis Comments DERMATOPATHOLOGY Routine 01/17/2018 12:0 0 AM WINDOW MACHINE OPERATOR documented in this encounter Results * DERMATOPATHOLOGY (01/17/2018 12:00 AM WINDOW MACHINE OPERATOR) Case Report Dermatopathology Report Case: [id number] Authorizing Provider: Juanpablo Austin MD Collected: 01/17/2018 12:00 AM Pathologist: Keyonna Carpio MD Received: 01/18/2018 12:35 PM Specimen: Skin, left mid ulnar distal FA 8 6:07 PM WINDOW MACHINE OPERATOR DERMATOPATHOLOGY LABORATORY Final Diagnosis Specimen A. SKIN, left mid ulnar distal FA: HYPERPLASTIC (HYPERTROPHIC) ACTINIC KERATOSIS (L57.0) 8 6:07 PM WINDOW MACHINE OPERATOR DERMATOPATHOLOGY LABORATORY Clinical History R/O Tyler's disease. 8 6:07 PM [facility] DERMATOPATHOLOGY LABORATORY Gross Description Specimen A: Received is one formalin filled container labeled with the patient's name and designated left mid ulnar distal FA. The specimen consists of a shave biopsy (2 pieces) measuring [id number] & [id number]. Jar 0. 8 6:07 PM [facility] DERMATOPATHOLOGY LABORATORY Microscopic Description Specimen A. SKIN, left mid ulnar distal FA: There is hyperkeratosis alternating with parakeratosis. There is epidermal hyperplasia with disorderly maturation of keratinocytes with nuclear pleomorphism confined to the lower half of the epidermis. 8 6:07 PM [facility] DERMATOPATHOLOGY LABORATORY Disclaimer An external and internal positive and negative controls are appropriate for the histochemical, immunohistochemical and immunofluorescence stain(s) in this case (if any), except where stated explicitly. The performance characteristics of the stain(s) cited in this report were developed and its performance characteristic determined by the Dermatopathology Laboratory at [facility]. These tests need not be, and therefore are not, approved by the [place] Food and Drug Administration. The tests are used for clinical purposes. Billing Codes Specimen Charges Stain Charges 34252 1 8 6:07 PM WINDOW MACHINE OPERATOR DERMATOPATHOLOGY LABORATORY Embedded Images 8 6:07 PM [facility] DERMATOPATHOLOGY LABORATORY Pathology/Cytolog y TISSUE SPECIMEN FROM SKIN / Unknown 01/17/2018 01/18/2018 12:35 PM WINDOW MACHINE OPERATOR Juanpablo Austin MD LAB - PATHOLOGY/CYTO LOGY ORDERABLES DERMATOPATHOLOGY LABORATORY [facility] - Department of Dermatology [address] Lab [address] [phone] documented in this encounter Visit Diagnoses Not on filedocumented in this encounter Care Teams Varnish Inspector Relationship Specialty Start Date End Date Chapin Ocampo MD [address] [place] [address] PCP - General 08/04/17 documented as of this encounter
--- OUTSIDE RECORDS SUMMARY | 2024-04-09 16:47 | XMS_ITS | Referral Summary ---
Author Organization [facility] Address [address] [place] [address] Care Team Providers Care Plasma Cutting Machine Operator Name Role Phone Chapin Ocampo MD Primary Care Provider [phone] Source Comments [facility],non-owned Affiliates and Associated Physician Practices is amultiple site organization consisting of ambulatory clinics and hospital sitesin [place], [place], [place] and [place]. This disclosure is being madepursuant to the Care Everywhere program and may not contain all information available regarding this patient. Last updated 17.[facility] Social History Tobacco Use Types Packs/Day Years Used Date Smoking Tobacco: Never Assessed Sex and Gender Information Value Date Recorded Sex Assigned at Not on file Gender Identity Not on file Sexual Orientation Not on file Plan of Treatment Not on file Care Teams Plasma Cutting Machine Operator Relationship Specialty Start Date End Date Chapin Ocampo MD [address] [place] [id number] [facility] - General 08/04/17
--- OUTSIDE RECORDS SUMMARY | 2024-04-09 16:47 | XMS_ITS | Encounter Summary ---
Author Organization [facility] Address [address] [place] [address] Care Team Providers Care Pilot Plant Operator Name Role Phone Kenna Rosario MD Primary Care Provider Unavailable Chapin Ocampo MD Primary Care Provider Bill Hutton MD Primary Care Provider Unavailabl e Encounter Details Date Type Department Care Team (Late st Contact Info) Description 11/30/[address] [facility] CONVERSION [address] [place], [place] [phone] Kenna Rosario MD Social History Tobacco Use Types Packs/Day Years Used Date Smoking Tobacco: Never Assessed Sex and Gender Information Value Date Recorded Sex Assigned at Not on file Legal Sex Male 5:20 PM CDT Gender Identity Not on file Sexual Orientation Not on file documented as of this encounter Plan of Treatment Not on file documented as of this encounter Visit Diagnoses Not on filedocumented in this encounter Care Teams Pilot Plant Operator Relationship Specialty Start Date End Date Kenna Rosario MD PCP - General 10/03/12 04/27/17 Chapin Ocampo MD [address] [place] [address] PCP - General FAMILY PRACTICE 11/27/19 12/24/19 Bill Hutton MD [address] [place] [address] PCP - General FAMILY MEDICINE SPORTS MEDICINE 12/25/19 08/25/20 documented as of this encounter
--- OUTSIDE RECORDS SUMMARY | 2024-04-09 16:47 | XMS_ITS | Clinical Summary ---
Author Organization [facility] Address [facility] [place] [address] Care Team Providers Care Career Center Advisor Name Role Phone Unavailable Primary Care Provider Unavailabl e Allergies Active Allergy Reactions Criticality Noted Date Comments Shellfish-Derived Products Anaphylaxis High 02/28/19 21 Medications Aspirin Buf,CaCarb-MgCa rb-MgO, 81 MG Tab Take 81 mg by mouth 2 (two) times daily. Active NOVOLOG FLEXPEN 100 UNIT/ML injection (PEN) 02/16/2020 Act sharan TRESIBA FLEXTOUCH 100 UNIT/ML Solution Pen-injector injection 12/02/2019 Active metFORMIN 1000 MG tablet Take 1,000 mg by mouth. Active rosuvastatin 5 MG tablet 10/20/2019 Active varenicline (CHANTIX CONTINUING MONTH MANNIE) 1 MG tabletIndicatio ns:Smoker TAKE DIRECTED 56 tablet 05/27/2020 Active Active Problems Problem Noted Date Diagnosed Date Type 2 diabetes mellitus wit hout complication, with long-term current use of insulin ([facility]) 02/29/2020 Cancer ([facility]) 02/29/2020 Immunizations Name Administration Dates Next Due Flublok (Quadrivalent) 11/22/2019 Fluzone High Dose - >Age 65 (Prefilled Syringe) 11/25/2018 Influenza Adult (Generic) 12/25/2017,,11/09/2015,2014 Pneumococcal (Prevnar 13) 11/22/2019 Shingrix 02/27/2020,11/22/2019 Family History Medical History Relation Comments Alzheimers Mother Diabetes Mother Hypertension Mother Relation Status Comments Mother Social History Tobacco Use Types Packs/Day Years Used Date Smoking Tobacco: Never Smokeless Tobacco: Never Alcohol Use Standard Drinks/Week Comments Never 0 (1 standard drink = 0.6 oz pur e alcohol) AUDIT-C Answer Date Recorded Q1: How often do you have a drink containing alc ohol? Never 02/29/2020 Average Number of Drinks Not on file 021 Frequency of Binge Drinking Not on file 02/14 PHQ-2 Answer Date Recorded PHQ-2 Score - If the patient scores above 3, please move on to questions 3-9 0 02/29/2020 Sex and Gender Information Value Date Recorded Sex Assigned at Not on file Legal Sex Male 5:20 PM CDT Gender Identity Not on file Sexual Orientation Not on file Last Filed Vital Signs Vital Sign Reading Time Taken Comments Blood Pressure 132/76 02/29/2020 8:15 AM SUPERVISOR AREA Pulse 96 02/29/2020 8:15 AM SUPERVISOR AREA Temperature 36.5 C (97.7 F) 02/29/2020 8:15 AM SUPERVISOR AREA Respiratory Rate 18 02/29/2020 8:15 AM SUPERVISOR AREA Oxygen Saturation 95% 02/29/2020 8:15 AM SUPERVISOR AREA Inhaled Oxygen Concentration - - Weight 74.8 kg (165 lb) 02/29/2020 8:15 AM SUPERVISOR AREA Height 177.8 cm (5' 10 ) 02/29/2020 8:15 AM SUPERVISOR AREA Body Mass Index 23.68 02/29/2020 8:15 AM SUPERVISOR AREA Plan of Treatment Health Maintenance Due Date Last Done Comments Colorectal Cancer Screening Colonoscopy (10 Years) 1953 Kidney Health Evaluation 1955 Diabetes: Retinopathy Eye Exam 10/17/1971 Hepatitis C 10/17/1971 DTaP, Tdap and Td Vaccines (1 - Tdap) 1972 RSV Immunization or 60+ Years (1 - Risk 60-74 years 1-dose series) 2013 Annual Medicare Wellness Visit 2018 Pneumococcal Vaccine: 65+ Years (2 of 2 - PPSV23 or PCV20) 01/17/2020 11/22/2019 Hemoglobin A1C 09/17/2020 03/20/2020, 11/07/2018 Lipid Panel 03/20/2021 03/20/2020 COVID-19 Vaccine ( - season) 2023 Influenza Adult (#1) 2023 11/22/2019, 11/25/2018, 12/25/2017, Additional history exists Zoster Vaccines Completed 02/27/2020, 11/22/2019 Meningococcal B Vaccine Aged Out No l onger eligible based on patient's age to complete this topic Meningococcal Vaccine Aged Out No yasmani mercedez eligible based on patient's age to complete this topic RSV Immunizations Under 20 Months Aged Out No longer eligible based on patient's age to complete this topic Procedures Procedure Name Priority Date/Time Associated Diagnosis Comments LIPID PANEL Routine 03/20/2020 8:31 AM SUPERVISOR AREA Hyperlipidemia, unspecified hyperlipidemia type HEMOGLOBIN, GLYCOSYLATED Routine 03/20/2020 8:31 AM SUPERVISOR AREA Type 2 diabetes mellitus without complication, with long-term current use of insulin ([facility]) from Last 3 Months or Most Recently Relevant to Health Maintenance Results * (ABNORMAL) HEMOGLOBIN, GLYCOSYLATED (03/20/2020 8:31 AM SUPERVISOR AREA) HGB A1C 8.1(H) 3.80 - 5.60 % 03/21/2020 12:06 AM SUPERVISOR AREA [facility] ESTIMATED AVG GLUCOSE 186(H) 74 - 106 MG/DL 03/21/2020 12:06 AM SUPERVISOR AREA [facility] 03/20/2020 8:31 AM SUPERVISOR AREA Bill Hutton MD LABORATORY Final Result [facility] [address] [facility] [place] [address], * LIPID PANEL (03/20/2020 8:31 AM SUPERVISOR AREA) CHOLESTEROL 122 MG/DL 03/20/2020 11:22 PM SUPERVISOR AREA AK[facility] BENITES Comment:DESIRABLE: <200 TRIGLYCERIDES 52 MG/DL 03/20/2020 11:22 PM SUPERVISOR AREA AKBAR GUERRERO Comment:<150 NORMAL HDL 52 >39 MG/DL 03/20/2020 11:22 PM SUPERVISOR AREA [facility] LDL-C 60 MG/DL 03/20/2020 11:22 PM SUPERVISOR AREA [facility] Comment:100-129 NEAR OR ABOV E OPTIMAL VLDL CALCULATION 10 MG/DL 03/20/19 11:22 PM SUPERVISOR AREA [facility] Comment:REFERENCE RANGE NOT ESTABLISHED CHOL/HDL RATIO 2.3 03/20/2020 11:22 PM SUPERVISOR AREA [facility] Comment:REFERENCE RANGE NOT ESTABLISHED LD-1/LD-2 RATIO 1.2 11:22 PM SUPERVISOR AREA [facility] Comment:REFERENCE RANGE NOT ESTABLISHED NON HDL CHOLESTEROL 70 MG/DL 03/20/2020 11:22 PM SUPERVISOR AREA [facility] Comment:REFERENCE RANGE NOT ESTABLISHED 03/20/2020 8:31 AM SUPERVISOR AREA Bill Hutton MD LABORATORY Final Result [facility] [address] [place] [address], from Last 3 Months or Most Recently Relevant to Health Maintenance Insurance [employer] MEDICARE
--- OUTSIDE RECORDS SUMMARY | 2024-04-09 16:47 | XMS_ITS | Patient Health Summary ---
Author Organization [facility] Address [address] [place] [address] Care Team Providers Care Carton Repairer Name Role Phone Chapin Ocampo MD Primary Care Provider [phone] Note from [facility],non-owned Affiliates and Associated Physician Practices is amultiple site organization consisting of ambulatory clinics and hospital sitesin [place], [place], [place] and [place]. This disclosure is being madepursuant to the Care Everywhere program and may not contain all information available regarding this patient. Last updated 17.[facility] Social History Tobacco Use Types Packs/Day Years Used Date Smoking Tobacco: Never Assessed Sex and Gender Information Value Date Recorded Sex Assigned at Not on file Gender Identity Not on file Sexual Orientation Not on file Procedures * DERMATOPATHOLOGY(Performed 09/29/2022) * DERMATOPATHOLOGY(Performed 01/17/2018) Results * DERMATOPATHOLOGY (09/29/2022 12:00 AM CDT) Only the most recent of2 resultswithin the time period is included. Case Report Dermatopathology Report Case: [id number] Authorizing Provider: Juanpablo Austin MD Collected: 09/29/2022 12:00 AM Ordering Location: [facility] DermPath Lab Received: 10/01/2022 04:51 PM Pathologist: Amelie Livingston MD Specimen: Skin, below lateral right eye on cheek 3 12:56 PM CDT DERMATOPATHOLOGY LABORATORY Final Diagnosis Specimen A. SKIN, below lateral right eye on cheek: EPIDERMOID CYST (L72.0) 3 12:56 PM CDT DERMATOPATHOLOGY LABORATORY Clinical History R/O Neoplasm Undertermined 3 12:56 PM CDT DERMATOPATHOLOGY LABORATORY Gross Description Specimen A: Received is one formalin filled container labeled with the patient's name and designated below lateral right eye on cheek. The specimen consists of a punch biopsy measuring 3x2x4 mm. Jar 0. 3 12:56 PM CDT DERMATOPATHOLOGY LABORATORY Microscopic Description Specimen A. SKIN, below lateral right eye on cheek: Within the dermis, there is a space lined by epithelium that resembles normal epidermis and the infundibular portion of the hair follicle. 3 12:56 PM CDT DERMATOPATHOLOGY LABORATORY Disclaimer An external and internal positive and negative controls are appropriate for the histochemical, immunohistochemical and immunofluorescence stain(s) in this case (if any), except where stated explicitly. The performance characteristics of the stain(s) cited in this report were developed and its performance characteristic determined by the Dermatopathology Laboratory at [facility], directed by Dr. Clifton Carpio. These tests need not be, and therefore are not, approved by the [place] Food and Drug Administration. The tests are used for clinical purposes. Billing Codes Specimen Charges Stain Charges 48976 1 3 12:56 PM CDT DERMATOPATHOLOGY LABORATORY Embedded Images 3 12:56 PM CDT DERMATOPATHOLOGY LABORATORY Pathology/Cytolog y TISSUE SPECIMEN FROM SKIN / Unknown 09/29/2022 10/01/2022 4:51 PM CDT Juanpablo Austin MD LAB - PATHOLOGY/CYTO LOGY ORDERABLES DERMATOPATHOLOGY LABORATORY [facility] - Department of Dermatology [facility] Specialized Medicine [address] [place] [address], [address] [phone] Care Teams Carton Repairer Relationship Specialty Start Date End Date Chapin Ocampo MD [address] [place] [address] PCP - General 08/04/17
--- OUTSIDE RECORDS SUMMARY | 2024-04-09 16:47 | XMS_ITS | Encounter Summary ---
Author Organization [facility] Address [address] [facility] [place] [address] Care Team Providers Care Scientific Associate Name Role Phone Chapin Ocampo MD Primary Care Provider [phone] Encounter Details Date Type Department Care Team (Late st Contact Info) Description 10/01/2022 Lab Requisition [facility] - DermPath Lab [address] [place] [address] Juanpablo Austin MD [address] [place] [address] Social History Tobacco Use Types [...] Priority Date/Time Associated Diagnosis Comments DERMATOPATHOLOGY Routine 09/29/2022 12:0 0 AM CDT documented in this encounter Results * DERMATOPATHOLOGY (09/29/2022 12:00 AM CDT) Case Report Dermatopathology Report Case: [id number] Authorizing Provider: Juanpablo Austin MD Collected: 09/29/2022 12:00 AM Ordering Location: [facility] DermPath Lab Received: 10/01/2022 04:51 PM Pathologist: Amelie Livingston MD Specimen: Skin, below lateral right eye on cheek 12:56 PM CDT DERMATOPATHOLOGY LABORATORY Final Diagnosis Specimen A. SKIN, below lateral right eye on cheek: EPIDERMOID CYST (L72.0) 12:56 PM CDT DERMATOPATHOLOGY LABORATORY Clinical History R/O Neoplasm Undertermined 12:56 PM CDT DERMATOPATHOLOGY LABORATORY Gross Description Specimen A: Received is one formalin filled container labeled with the patient's name and designated below lateral right eye on cheek. The specimen consists of a punch biopsy measuring 3x2x4 mm. Jar 0. 12:56 PM CDT DERMATOPATHOLOGY LABORATORY Microscopic Description Specimen A. SKIN, below lateral right eye on cheek: Within the dermis, there is a space lined by epithelium that resembles normal epidermis and the infundibular portion of the hair follicle. 12:56 PM CDT DERMATOPATHOLOGY LABORATORY Disclaimer An external and internal positive and negative controls are appropriate for the histochemical, immunohistochemical and immunofluorescence stain(s) in this case (if any), except where stated explicitly. The performance characteristics of the stain(s) cited in this report were developed and its performance characteristic determined by the Dermatopathology Laboratory at [facility], directed by Dr. Clifton Carpio. These tests need not be, and therefore are not, approved by the [place] Food and Drug Administration. The tests are used for clinical purposes. Billing Codes Specimen Charges Stain Charges 77152 1 12:56 PM CDT DERMATOPATHOLOGY LABORATORY Embedded Images 12:56 PM CDT DERMATOPATHOLOGY LABORATORY Pathology/Cytolog y TISSUE SPECIMEN FROM SKIN / Unknown 09/29/2022 10/01/2022 4:51 PM CDT Juanpablo Austin MD LAB - PATHOLOGY/CYTO LOGY ORDERABLES DERMATOPATHOLOGY LABORATORY [facility] - Department of Dermatology [address], [address] [phone] documented in this encounter Visit Diagnoses Not on filedocumented in this encounter Care Teams Scientific Associate Relationship Specialty Start Date End Date Chapin Ocampo MD [address] [place] [address] PCP - General 08/04/17 documented as of this encounter
== END 2024-04-09 15:38 | disposition home or self-care (01) ==
PROVIDERS: Emergency Provider Nurse Practitioner; PCP Internal Medicine
DX: T25.122A Burn of first degree of left foot, initial encounter (principal); T25.121A Burn of first degree of right foot, initial encounter; X19.XXXA Contact with other heat and hot substances, initial encounter; Z23 Encounter for immunization; Z87.891 Personal history of nicotine dependence; F12.90 Cannabis use, unspecified, uncomplicated; J44.9 Chronic obstructive pulmonary disease, unspecified; E11.9 Type 2 diabetes mellitus without complications; Z79.4 Long term (current) use of insulin; Z85.819 Personal history of malignant neoplasm of unspecified site of lip, oral cavity, and pharynx
CPT/HCPCS: 90471; 90715; 99212; G0463

== ENCOUNTER 2024-07-12 10:21 | Outpatient (CLI) | payer MEDICARE, OTHER, SELFPAY ==
--- NOTE | ~2024-07-12 | CT_ITS ---
CT Scan of the Chest without Contrast: Clinical Indication: Lung cancer screening, nicotine dependence Technique: Contiguous sections were acquired throughout the chest without intravenous contrast. Dose reduction technique was used on this scan by utilizing automated exposure control and iterative recon struction technique. The dose-length product (DLP) was 91.27 mGy-cm. COMPARISON: 07/12/2023 Findings: There is no evidence of any significant mediastinal, hilar or axillary lymphadenopathy. Coronary kings[place] ry calcifications are present. There is no evidence of pleural or pericardial effusion. There is right apical scarring. Stable 2 mm apical nodule posteriorly. Stable 11 mm ovoid circumscrib ed nodule the right upper lobe (axial image 58). Stable additional 7 mm nodule in the inferior right upper lobe (axial image 67), with additional adjacent 4 mm nodule (axial image 69). Images through the upper abdomen reveal 7 mm nonobstructing left renal stone. 5 mm nonobstructing rig ht renal stone noted. There is mild chronic compression deformity of L1. Impression: Lung RADS 2: Benign appearance. 12 month follow-up screening CT advised. Reviewed, dictated and finalized at location M. Impression: Lung RADS 2: Benign appearance. 12 month follow-up screening CT advised.
--- OUTSIDE RECORDS SUMMARY | 2024-07-12 10:24 | XMS_ITS | Clinical Summary ---
Author Organization [facility] Address [address] [place] [address] Care Team Providers Care Manager Cardiac Name Role Phone Brett Gunn MD Primary Care Provider [phone] Allergies No known active allergies Medications metformin [...] migh t be different from the original. Web Ui Developer - Dr. Chris ([place] office) Problem Noted [...] on file Legal Sex Male 5:51 AM MLT Gender Identity Not on file Sexual Orientation [...] 12:37 AM CDT Height 177.8 cm (5' 10) 10/08/2014 12:37 AM CDT Body Mass Index 26.2 10/08/2014 12:37 AM CDT Plan of Treatment Health Maintenance Due Date Last Done Comments DTAP/TDAP/TD VACCINES (1 - Tdap) 1972 COLORECTAL SCREENING 1998 Colorectal Cancer Screening 1998 FIT-DNA Q 3 years 1998 FIT/FOBT Q 1 year 1998 Flex Sig/CT Colonography Q 5 years 1998 PNEUMOCOCCAL VACCINE 50+ YEARS (1 of 1 - PCV) 10/17/19 04 ZOSTER VACCINE (1 of 2) 10/17/2003 INFLUENZA VACCINE (#1) 2023 RSV VACCINE (60+ or ) (1 - 1-dose 75+ series) 2028 Advance Directives For more information, please contact: [phone] * Full Code (Latest Code Status on File) Date Activated Date Inactivated Comments 10/07/2014 3:25 PM 10/10/2014 3:05 PM * Full Code Date Activated Date Inactivated Comments 10/07/2014 9:26 AM 10/07/2014 3:25 PM * Full Code Date Activated Date Inactivated Comments 06/13/2014 7:18 AM 06/14/2014 3:01 AM Care Teams Manager Cardiac Relationship Specialty Start Date End Date Brett Gunn MD PCP - General Internal Medicine 04/10/13
--- OUTSIDE RECORDS SUMMARY | 2024-07-12 10:24 | XMS_ITS | Clinical Summary ---
Author Organization [facility] Address [address] [place] [address] Care Team Providers Care Platen Press Operator Apprentice Name Role Phone Chapin Ocampo MD Primary Care Provider [phone] Source Comments [facility],non-owned Affiliates and Associated Physician Practices is amultiple site organization consisting of ambulatory clinics and hospital sitesin [place], [place], [place] and [place]. This disclosure is being madepursuant to the Care Everywhere program and may not contain all information available regarding this patient. Last updated 17.[facility] Social History Tobacco Use Types Packs/Day Years Used Date Smoking Tobacco: Never Assessed Sex and Gender Information Value Date Recorded Sex Assigned at Not on file Legal Sex Male 11:12 AM CDT Gender Identity Not on file Sexual [...] VACCINE ( - 2023-2 5 season) 2023 DEPRESSION SCREENING 02/15/2024 INFLUENZA VACCINE (Season Ended) 2024 Respiratory Syncytial Virus (RSV) Vaccine Pt: or [...] to complete this topic MENINGOCOCCAL (Group B) VACC INE SHARED DECISION-MAKING Aged Out No longer eligibl e based on patient's age to complete this topic MENINGOCOCCAL GROUPS A/C/Y/W VACCINE Aged Out No longer eligible b ased on patient's age to complete this topic Insurance [facility] MEDICARE Care Teams Platen Press Operator Apprentice Relationship Specialty Start Date End Date Chapin Ocampo MD [address] [place] [address] PCP - General 08/04/17
--- OUTSIDE RECORDS SUMMARY | 2024-07-12 10:24 | XMS_ITS | Encounter Summary ---
Author Organization [facility] Address [address] [facility] [place] [address] Care Team Providers Care Vault Keeper Name Role Phone Chapin Ocampo MD Primary Care Provider [phone] Encounter Details Date Type Department Care Team (Late st Contact Info) Description 10/01/2022 Lab Requisition [facility] - DermPath Lab [address] [facility] [place] [address] Juanpablo Austin MD [address] [place] [address] Social History Tobacco Use Types [...] AM CDT) Case Report Dermatopathology Report Case: [id number] Authorizing Provider: Juanpablo Austin MD Collected: 09/29/2022 12:00 AM Ordering Location: [facility] DermPath Lab Received: 10/01/2022 04:51 PM Pathologist: Amelie Livingston MD Specimen: Skin, below lateral right eye on cheek 12:56 PM CDT DERMATOPATHOLOGY LABORATORY Final Diagnosis Specimen A. SKIN, below lateral right eye on cheek: EPIDERMOID CYST (L72.0) 3 12:56 PM CDT DERMATOPATHOLOGY LABORATORY at 1256 CDT Clinical History R/O Neoplasm Undertermined 3 12:56 [...] characteristic determined by the Dermatopathology Laboratory at [facility], directed by Dr. Clifton Carpio. These tests need not be, and therefore are not, approved by the [place] Food and Drug Administration. The tests are used for clinical purposes. Billing Codes Specimen Charges Stain Charges 91262 1 3 12:56 PM CDT DERMATOPATHOLOGY LABORATORY Embedded Images 3 12:56 PM CDT DERMATOPATHOLOGY LABORATORY Pathology/Cytolog y TISSUE SPECIMEN FROM SKIN / Unknown 09/29/2022 10/01/2022 4:51 PM CDT us Juanpablo Austin MD LAB - PATHOLOGY/CYTOLOGY ORD ERABLES Final Result DERMATOPATHOLOGY LABORATORY [facility] - Department of Dermatology [address], [address] [phone] documented in this encounter Visit Diagnoses Not on filedocumented in this encounter Care Teams Vault Keeper Relationship Specialty Start Date End Date Chapin Ocampo MD [address] [place] [address] PCP - General 08/04/17 documented as of this encounter
--- OUTSIDE RECORDS SUMMARY | 2024-07-12 10:24 | XMS_ITS | Encounter Summary ---
Author Organization [facility] Address [address] [facility] [place] [address] Care Team Providers Care Channel Lip Stiffener Insoles Name Role Phone Chapin Ocampo MD Primary Care Provider [phone] Encounter Details Date Type Department Care Team (Late st Contact Info) Description 01/18/2018 Lab Requisition [facility] Care DermPath Lab [address] [facility] [place] [address] Juanpablo Austin MD [address] [place] [address] Social History Tobacco Use Types [...] Comments DERMATOPATHOLOGY Routine 01/17/2018 12:0 0 AM CHEMISTRY MANAGER documented in this encounter Results * DERMATOPATHOLOGY (01/17/2018 12:00 AM CHEMISTRY MANAGER) Case Report Dermatopathology Report Case: [id number] Authorizing Provider: Juanpablo Austin MD Collected: 01/17/2018 12:00 AM Pathologist: Keyonna Carpio MD Received: 01/18/2018 12:35 PM Specimen: Skin, left mid ulnar distal FA 8 6:07 PM CHEMISTRY MANAGER DERMATOPATHOLOGY LABORATORY Final Diagnosis Specimen A. SKIN, left mid ulnar distal FA: HYPERPLASTIC (HYPERTROPHIC) ACTINIC KERATOSIS (L57.0) 8 6:07 PM CHEMISTRY MANAGER DERMATOPATHOLOGY LABORATORY at 1807 CHEMISTRY MANAGER Clinical History R/O Tyler's disease. 8 6:07 PM [facility] DERMATOPATHOLOGY LABORATORY Gross Description Specimen A: Received is one formalin filled container labeled with the patient's name and designated left mid ulnar distal FA. The specimen consists of a shave biopsy (2 pieces) measuring [id number] & [id number]. Jar 0. 8 6:07 PM [facility] DERMATOPATHOLOGY LABORATORY Microscopic Description Specimen A. SKIN, left mid ulnar distal FA: There is hyperkeratosis alternating with parakeratosis. There is epidermal hyperplasia with disorderly maturation of keratinocytes with nuclear pleomorphism confined to the lower half of the epidermis. 8 6:07 PM [facility] DERMATOPATHOLOGY LABORATORY Disclaimer An external and internal positive and negative controls are appropriate for the histochemical, immunohistochemical and immunofluorescence stain(s) in this case (if any), except where stated explicitly. The performance characteristics of the stain(s) cited in this report were developed and its performance characteristic determined by the Dermatopathology Laboratory at [facility]. These tests need not be, and therefore are not, approved by the [place] Food and Drug Administration. The tests are used for clinical purposes. Billing Codes Specimen Charges Stain Charges 98519 1 8 6:07 PM [facility] DERMATOPATHOLOGY LABORATORY Embedded Images 8 6:07 PM [facility] DERMATOPATHOLOGY LABORATORY Pathology/Cytolog y TISSUE SPECIMEN FROM SKIN / Unknown 01/17/2018 01/18/2018 12:35 PM [facility] us Juanpablo Austin MD LAB - PATHOLOGY/CYTOLOGY ORD ERABLES Final Result DERMATOPATHOLOGY LABORATORY [facility] - Department of Dermatology [facility] [facility], [address] [place] [address], [facility] [phone] documented in this encounter Visit Diagnoses Not on filedocumented in this encounter Care Teams Channel Lip Stiffener Insoles Relationship Specialty Start Date End Date Chapin Ocampo MD [address] [place] [address] PCP - General 08/04/17 documented as of this encounter
--- OUTSIDE RECORDS SUMMARY | 2024-07-12 10:24 | XMS_ITS | Continuity of Care Document ---
Author Organization [facility] Address [address] [place] [address] Phone Care Team Providers Care Security Supervisor Name Role Phone No Information Unavailable Unavailable Medications Medication Instructions Dosage Effective Dates (start - stop) Status Comments No Drug Therapy Prescribed Advance Directives Directive Yes / No Effective Date File Name No Information Encounters Encounter Description Practice Location Reason(s) For Visit Diagnoses Date Provider Providers Copied on Encounter [facility], [address] [place] [address], [address], [place] tel:[phone] No Information No Information Family History Family Member Type Diagnosis Age At Onset No Information Payers Payer name Insurance type Covered republican ID Authoriza tion(s) No Information Social History Type Description Quantity Date Captured Comments Sex Male Smoking Status No Information Chief Complaint And Reason For Visit No Information History Of Present Illness Encounter Date Complaint History Of Prese nt Illness No Information Medications Administered Medication Instructions Dosage Effective Dates (start - stop) Status Comments No Drug Therapy Prescribed Instructions Date Instruction Additional Infor mation No Information Assessments Type Assessment Date No Information
== END 2024-07-12 10:22 | disposition home or self-care (01) ==
PROVIDERS: PCP Family Medicine; Visit Provider Physician Assistant
DX: Z12.2 Encounter for screening for malignant neoplasm of respiratory organs (principal); Z87.891 Personal history of nicotine dependence
CPT/HCPCS: 71271